=== PATIENT | male | born 1940 | race Hispanic/Latino ===

== ENCOUNTER 2017-08-28 21:08 | Inpatient (IN) | payer MEDICARE ==
[~2017-08-28] VITALS: Ht 167.6 cm; Wt 91.2 kg
[~2017-08-28 21:08] MED LIST: ALLO100T PO; CETI10TA57 PO; FURO40TA5 PO; ISOS30TA6 PO; LEVO50TA11 PO; LOSA100T29 PO; MELA1TAB28 PO; NIAC-8 PO; NOVOLOG 75/25 SQ; SIMV80TA5 PO
[2017-08-28] MEDS ORDERED: ACETAMINOPHEN-CODEINE ELIXIR 5 ML UDCUP ONE (21:34)
[2017-08-28] MEDS ORDERED: SODIUM CHLORIDE 0.9% 1000ML 1,000 ML IV ONE (21:34)
[2017-08-28 21:38] LABS: BASOPHILS % (AUTO) 0.7 % (0.0-5.0); EOSINOPHILS % (AUTO) 0.1 % (0.0-8.0); HEMATOCRIT 32.9 % (42-54); LYMPHOCYTES % (AUTO) 4.7 % (21.0-51.0); MEAN CORPUSCULAR HEMOGLOBIN 29.3 pg (27.0-33.0); MEAN CORPUSCULAR HGB CONC 32.8 g/dL (32.0-36.0); MEAN CORPUSCULAR VOLUME 89.2 fL (79-99); MONOCYTES % (AUTO) 7.2 % (3.0-13.0); NEUTROPHILS % (AUTO) 87.3 % (40.0-77.0); PLATELET COUNT (AUTO) 220 K/uL (130-400); RED BLOOD CELL COUNT(AUTO) 3.69 MIL/uL (4.50-6.20); RED CELL DISTRIBUTION WIDTH 18.7 % (11.0-15.5); WHITE BLOOD COUNT (AUTO) 9.9 K/uL (4.8-10.8)
[2017-08-28] MEDS ORDERED: OSELTAMIVIR PHOSPHATE 75 MG CAP ONE (22:16)
[2017-08-28 22:17] LABS: CREATININE 2.9 mg/dL (0.5-1.5); POTASSIUM 4.9 mmol/L (3.5-5.1)
[2017-08-28] MEDS ORDERED: IPRATROPIUM/ALBUTEROL SULFATE 3 ML SOLUTION IH ONE (22:22)
[2017-08-28] MEDS ORDERED: LEVOFLOXACIN 500 MG/D5W 100 ML 100 ML ONE (23:19)
[2017-08-28] MEDS ORDERED: DEXTROSE 50%-WATER 50 ML DISP.SYRIN IV PRN (23:30)
[2017-08-28] MEDS ORDERED: NITROGLYCERIN 0.4 MG SL TAB SL PRN (23:30)
[2017-08-28] MEDS ORDERED: DiphenhydrAMINE HCL 50 MG/ML VIAL IV PRN (23:30)
[2017-08-28] MEDS ORDERED: GLUCAGON 1MG KIT 1 MG ML IM PRN (23:30)
[2017-08-28] MEDS ORDERED: HYDRALAZINE HCL 20 MG/ML VIAL IV PRN (23:30)
[2017-08-28] MEDS ORDERED: LEVOFLOXACIN 500 MG/D5W 100 ML 100 ML IV SCH (23:30)
[2017-08-29] VITALS (7 sets, daily range): BP systolic 120–140; BP diastolic 59–76
[2017-08-29] MEDS: IPRATROPIUM/ALBUTEROL SULFATE 3 ML SOLUTION IH SCH ×4 (01:32→19:07)
[2017-08-29] MEDS: SODIUM CHLORIDE 0.9% 1000ML 1,000 ML IV SCH ×2 (02:15→07:40)
[2017-08-29] MEDS: GUAIFENESIN-DM 200/20 MG 10 ML PO PRN ×2 (02:52→21:23)
[2017-08-29] MEDS: LEVOFLOXACIN 500 MG/D5W 100 ML 100 ML IV SCH (03:09)
[2017-08-29] MEDS ORDERED: CLONIDINE HCL 0.1 MG TABLET PO PRN (03:15)
[2017-08-29] MEDS ORDERED: POTASSIUM CHLORIDE 10% ELIXIR 20 MEQ/15 ML UDCUP PO PRN (03:15)
[2017-08-29] MEDS ORDERED: LIDOCAINE HCL-MPF 1% 2ML VIAL IJ PRN (03:15)
[2017-08-29] MEDS ORDERED: ACETAMINOPHEN 325 MG TAB PO PRN ×2 (03:15)
[2017-08-29] MEDS ORDERED: POTASSIUM CHLORIDE 20 MEQ ERTAB PO PRN (03:15)
[2017-08-29] MEDS ORDERED: POTASSIUM CHLORIDE 20MEQ/100ML 100 ML IV PRN (03:15)
[2017-08-29 05:35] LABS: HEMATOCRIT 28.2 % (42-54); MEAN CORPUSCULAR HEMOGLOBIN 28.9 pg (27.0-33.0); MEAN CORPUSCULAR HGB CONC 33.4 g/dL (32.0-36.0); MEAN CORPUSCULAR VOLUME 86.6 fL (79-99); PLATELET COUNT (AUTO) 166 K/uL (130-400); RED BLOOD CELL COUNT(AUTO) 3.26 MIL/uL (4.50-6.20); RED CELL DISTRIBUTION WIDTH 18.3 % (11.0-15.5); WHITE BLOOD COUNT (AUTO) 8.1 K/uL (4.8-10.8)
[2017-08-29 05:50] LABS: B-TYPE NATRIURETIC PEPTIDE 2040 pg/mL (0-100)
[2017-08-29 06:09] LABS: HEMOGLOBIN A1C 10.6 % (4.0-6.0)
[2017-08-29 06:11] LABS: CREATINE KINASE MB 1.1 ng/mL (0.5-3.6); TROPONIN I 0.07 ng/mL (0.00-0.06)
[2017-08-29] MEDS: FAMOTIDINE 20MG TAB 20 MG TAB PO SCH (07:40)
[2017-08-29] MEDS: COMPOUNDING VEHICLE NO 8 PO SCH ×3 (07:40)
[2017-08-29] MEDS: [UNRECOGNIZED DRUG - OTHER] PO SCH ×3 (07:40)
[2017-08-29] MEDS: OSELTAMIVIR PHOSPHATE PO SCH ×3 (07:40)
[2017-08-29] MEDS: INSULIN HUMULIN R 100 UNIT/ML 3ML SQ SCH ×4 (08:09→21:00)
[2017-08-29] MEDS ORDERED: COMPOUND IV MISC 1 EACH IVSOLN MISC PRN (08:15)
[2017-08-29] MEDS ORDERED: OSELTAMIVIR PHOSPHATE 75 MG CAP PO SCH ×3 (09:00)
[2017-08-29] MEDS ORDERED: SPIR25TA4 PO (09:36)
[2017-08-29] MEDS ORDERED: GLIP5TAB11 PO (09:36)
[2017-08-29] MEDS ORDERED: SIMV80TA5 PO (09:36)
[2017-08-29] MEDS ORDERED: LEVO50 PO (09:36)
[2017-08-29] MEDS ORDERED: LOSA100T29 PO (09:36)
[2017-08-29] MEDS ORDERED: METO-408 PO (09:36)
[2017-08-29] MEDS ORDERED: ALLO100T PO (09:36)
[2017-08-29] MEDS ORDERED: ISOS30TA11 PO (09:36)
[2017-08-29] MEDS ORDERED: FURO40TA5 PO (09:36)
[2017-08-29 09:57] LABS: APPEARANCE,URINE Cloudy (CLEAR); BILIRUBIN,URINE Negative (NEGATIVE); COLOR,URINE Yellow (YELLOW); GLUCOSE, URINE (UA) TRACE mg/dL (NEGATIVE); KETONES,URINE Negative (NEGATIVE); LEUKOCYTE ESTERASE ,URINE Large (NEGATIVE); NITRATE,URINE Negative (NEGATIVE); OCCULT BLOOD,URINE Moderate (NEGATIVE); PH,URINE 6.5 (5.0-8.0); PROTEIN,URINE POS 2+ (NEGATIVE)
[2017-08-29] MEDS ORDERED: COMPOUND PO MISCELLANEOUS 1 EACH MISC MISC PRN (10:00)
[2017-08-29 10:31] LABS: RBC,URINE 0-1 /HPF (0-1); WBC,URINE 51-100 /HPF (0-1)
[2017-08-29 10:32] LABS: BACTERIA,URINE Rare /HPF (None Seen); SQUAMOUS EPITHELIAL CELL,UR Rare /LPF (0-2)
[2017-08-29] MEDS: FUROSEMIDE 40 MG TABLET PO SCH (17:11)
[2017-08-29] MEDS: GLIPIZIDE 5 MG TABLET PO SCH (17:11)
[2017-08-29] MEDS: LACTULOSE 20 GM/30 ML UDCUP PO PRN (21:23)
[2017-08-29] MEDS: ISOSORBIDE DINITRATE 20 MG TABLET PO SCH (21:23)
[2017-08-29] MEDS: ATORVASTATIN CALCIUM 40 MG TABLET PO SCH (21:23)
[2017-08-30] MEDS: IPRATROPIUM/ALBUTEROL SULFATE 3 ML SOLUTION IH SCH ×4 (00:14→18:30)
[2017-08-30] MEDS: METHYLPREDNISOLONE SOD SUCC 125MG/2ML VIAL IVP SCH ×3 (01:12→17:01)
[2017-08-30 04:00] VITALS: BP 124/65
[2017-08-30] MEDS: INSULIN HUMULIN R 100 UNIT/ML 3ML SQ SCH ×4 (06:09→21:33)
[2017-08-30 08:00] VITALS: BP 128/73
[2017-08-30] MEDS: FUROSEMIDE 40 MG TABLET PO SCH ×2 (08:45→17:01)
[2017-08-30] MEDS: SPIRONOLACTONE 25 MG TAB PO SCH (08:45)
[2017-08-30] MEDS: FAMOTIDINE 20MG TAB 20 MG TAB PO SCH (08:46)
[2017-08-30] MEDS: LEVOTHYROXINE 50 MCG TABLET PO SCH (08:46)
[2017-08-30] MEDS: ALLOPURINOL 100 MG TABLET PO SCH (08:46)
[2017-08-30] MEDS: LOSARTAN 100 MG TABLET PO SCH (08:47)
[2017-08-30] MEDS: METOPROLOL TARTRATE 25 MG TAB PO SCH ×2 (08:47→21:39)
[2017-08-30] MEDS: GLIPIZIDE 5 MG TABLET PO SCH ×2 (08:47→17:01)
[2017-08-30] MEDS: OSELTAMIVIR PHOSPHATE PO SCH ×3 (09:00)
[2017-08-30] MEDS: COMPOUNDING VEHICLE NO 8 PO SCH ×3 (09:00)
[2017-08-30] MEDS: ISOSORBIDE DINITRATE 20 MG TABLET PO SCH (09:00)
[2017-08-30] MEDS: [UNRECOGNIZED DRUG - OTHER] PO SCH ×3 (09:00)
[2017-08-30] MEDS: ISOSORBIDE DINITRATE 10 MG TABLET PO SCH ×2 (10:19→21:39)
[2017-08-30 12:00] VITALS: BP 121/79
[2017-08-30 16:00] VITALS: BP 123/63
[2017-08-30 19:00] VITALS: BP 122/66
[2017-08-30] MEDS: LACTULOSE 20 GM/30 ML UDCUP PO PRN (19:10)
[2017-08-30] MEDS: ATORVASTATIN CALCIUM 40 MG TABLET PO SCH (21:39)
[2017-08-30 23:00] VITALS: BP 131/69
[2017-08-31] MEDS: METHYLPREDNISOLONE SOD SUCC 125MG/2ML VIAL IVP SCH ×5 (00:18→23:38)
[2017-08-31] MEDS: IPRATROPIUM/ALBUTEROL SULFATE 3 ML SOLUTION IH SCH ×4 (00:18→18:17)
[2017-08-31 03:00] VITALS: BP 113/54
[2017-08-31] MEDS: LEVOFLOXACIN 500 MG/D5W 100 ML 100 ML IV SCH (03:27)
[2017-08-31 04:41] LABS: HEMATOCRIT 26.7 % (42-54); MEAN CORPUSCULAR HEMOGLOBIN 28.7 pg (27.0-33.0); MEAN CORPUSCULAR HGB CONC 33.1 g/dL (32.0-36.0); MEAN CORPUSCULAR VOLUME 86.7 fL (79-99); NUCLEATED RED BLOOD CELLS 0.1 % (0.0-0.19); PLATELET COUNT (AUTO) 180 K/uL (130-400); RED BLOOD CELL COUNT(AUTO) 3.07 MIL/uL (4.50-6.20); RED CELL DISTRIBUTION WIDTH 18.6 % (11.0-15.5); WHITE BLOOD COUNT (AUTO) 9.9 K/uL (4.8-10.8)
[2017-08-31 05:04] LABS: CREATININE 3.2 mg/dL (0.5-1.5); POTASSIUM 3.5 mmol/L (3.5-5.1)
[2017-08-31] MEDS: INSULIN HUMULIN R 100 UNIT/ML 3ML SQ SCH ×4 (06:25→21:44)
[2017-08-31] MEDS: LEVOTHYROXINE 50 MCG TABLET PO SCH (06:25)
[2017-08-31 07:00] VITALS: BP 133/72
[2017-08-31] MEDS: ALLOPURINOL 100 MG TABLET PO SCH (08:06)
[2017-08-31] MEDS: ISOSORBIDE DINITRATE 10 MG TABLET PO SCH ×2 (08:07→21:49)
[2017-08-31] MEDS: LOSARTAN 100 MG TABLET PO SCH (08:07)
[2017-08-31] MEDS: FUROSEMIDE 40 MG TABLET PO SCH ×2 (08:08→15:45)
[2017-08-31] MEDS: FAMOTIDINE 20MG TAB 20 MG TAB PO SCH (08:08)
[2017-08-31] MEDS: SPIRONOLACTONE 25 MG TAB PO SCH (08:09)
[2017-08-31] MEDS: GLIPIZIDE 5 MG TABLET PO SCH ×2 (08:09→15:45)
[2017-08-31] MEDS: METOPROLOL TARTRATE 25 MG TAB PO SCH ×2 (08:10→21:50)
[2017-08-31] MEDS: CADEXOMER IODINE 40 GM GEL TP SCH (08:10)
[2017-08-31] MEDS ORDERED: ENOXAPARIN SODIUM 30 MG/0.3 ML SQ SCH (09:00)
[2017-08-31 11:00] VITALS: BP 129/65
[2017-08-31 15:10] VITALS: BP 128/70
[2017-08-31 19:57] VITALS: BP 118/65
[2017-08-31] MEDS: ATORVASTATIN CALCIUM 40 MG TABLET PO SCH (21:49)
[2017-08-31] MEDS: [UNRECOGNIZED DRUG - OTHER] PO SCH ×3 (21:50)
[2017-08-31] MEDS: OSELTAMIVIR PHOSPHATE PO SCH ×3 (21:50)
[2017-08-31] MEDS: COMPOUNDING VEHICLE NO 8 PO SCH ×3 (21:50)
[2017-08-31] MEDS: GUAIFENESIN-DM 200/20 MG 10 ML PO PRN (21:50)
[2017-08-31 23:53] VITALS: BP 126/70
[2017-09-01] MEDS: IPRATROPIUM/ALBUTEROL SULFATE 3 ML SOLUTION IH SCH ×5 (00:03→23:52)
[2017-09-01 03:43] VITALS: BP 128/77
[2017-09-01 05:01] LABS: HEMATOCRIT 27.2 % (42-54); MEAN CORPUSCULAR HEMOGLOBIN 30.1 pg (27.0-33.0); MEAN CORPUSCULAR HGB CONC 34.6 g/dL (32.0-36.0); MEAN CORPUSCULAR VOLUME 86.8 fL (79-99); PLATELET COUNT (AUTO) 186 K/uL (130-400); RED BLOOD CELL COUNT(AUTO) 3.13 MIL/uL (4.50-6.20); RED CELL DISTRIBUTION WIDTH 18.2 % (11.0-15.5); WHITE BLOOD COUNT (AUTO) 13.6 K/uL (4.8-10.8)
[2017-09-01 05:08] LABS: CREATININE 3.3 mg/dL (0.5-1.5); POTASSIUM 3.7 mmol/L (3.5-5.1)
[2017-09-01 05:14] LABS: B-TYPE NATRIURETIC PEPTIDE 1040 pg/mL (0-100)
[2017-09-01] MEDS: LEVOTHYROXINE 50 MCG TABLET PO SCH (07:18)
[2017-09-01 07:20] VITALS: BP 122/64
[2017-09-01] MEDS: INSULIN HUMULIN R 100 UNIT/ML 3ML SQ SCH ×4 (07:20→21:25)
[2017-09-01] MEDS: GLIPIZIDE 5 MG TABLET PO SCH ×2 (10:34→16:32)
[2017-09-01] MEDS: METHYLPREDNISOLONE SOD SUCC 125MG/2ML VIAL IVP SCH ×2 (10:34→16:32)
[2017-09-01] MEDS: FUROSEMIDE 40 MG TABLET PO SCH ×2 (10:34→16:32)
[2017-09-01] MEDS: SPIRONOLACTONE 25 MG TAB PO SCH (10:35)
[2017-09-01] MEDS: METOPROLOL TARTRATE 25 MG TAB PO SCH ×2 (10:35→21:28)
[2017-09-01] MEDS: LOSARTAN 100 MG TABLET PO SCH (10:35)
[2017-09-01] MEDS: ALLOPURINOL 100 MG TABLET PO SCH (10:35)
[2017-09-01] MEDS: ISOSORBIDE DINITRATE 10 MG TABLET PO SCH ×2 (10:35→21:28)
[2017-09-01] MEDS: FAMOTIDINE 20MG TAB 20 MG TAB PO SCH (10:35)
[2017-09-01] MEDS: CADEXOMER IODINE 40 GM GEL TP SCH (10:36)
[2017-09-01] MEDS: OSELTAMIVIR PHOSPHATE PO SCH ×3 (10:37)
[2017-09-01] MEDS: [UNRECOGNIZED DRUG - OTHER] PO SCH ×3 (10:37)
[2017-09-01] MEDS: COMPOUNDING VEHICLE NO 8 PO SCH ×3 (10:37)
[2017-09-01 11:02] VITALS: BP 132/78
[2017-09-01 15:00] VITALS: BP 120/64
[2017-09-01 20:20] VITALS: BP 124/74
[2017-09-01] MEDS: ATORVASTATIN CALCIUM 40 MG TABLET PO SCH (21:28)
[2017-09-01 23:42] VITALS: BP 127/73
[2017-09-02] MEDS: METHYLPREDNISOLONE SOD SUCC 125MG/2ML VIAL IVP SCH ×2 (00:34→07:40)
[2017-09-02] MEDS: LEVOFLOXACIN 500 MG/D5W 100 ML 100 ML IV SCH (02:24)
[2017-09-02 03:18] VITALS: BP 127/75
[2017-09-02 03:42] LABS: HEMATOCRIT 28.1 % (42-54); MEAN CORPUSCULAR HEMOGLOBIN 29.1 pg (27.0-33.0); MEAN CORPUSCULAR HGB CONC 33.5 g/dL (32.0-36.0); NUCLEATED RED BLOOD CELLS 0.2 % (0.0-0.19); PLATELET COUNT (AUTO) 159 K/uL (130-400); RED BLOOD CELL COUNT(AUTO) 3.23 MIL/uL (4.50-6.20); RED CELL DISTRIBUTION WIDTH 18.7 % (11.0-15.5); WHITE BLOOD COUNT (AUTO) 10.8 K/uL (4.8-10.8)
[2017-09-02 03:59] LABS: CREATININE 3.2 mg/dL (0.5-1.5); POTASSIUM 3.9 mmol/L (3.5-5.1)
[2017-09-02 04:09] LABS: B-TYPE NATRIURETIC PEPTIDE 1170 pg/mL (0-100)
[2017-09-02] MEDS: IPRATROPIUM/ALBUTEROL SULFATE 3 ML SOLUTION IH SCH ×4 (06:40→23:24)
[2017-09-02] MEDS: INSULIN HUMULIN R 100 UNIT/ML 3ML SQ SCH ×4 (07:01→20:26)
[2017-09-02] MEDS: LEVOTHYROXINE 50 MCG TABLET PO SCH (07:01)
[2017-09-02] MEDS: FUROSEMIDE 40 MG TABLET PO SCH (07:41)
[2017-09-02] MEDS: GLIPIZIDE 5 MG TABLET PO SCH ×2 (07:41→16:54)
[2017-09-02 08:21] VITALS: BP 146/86
[2017-09-02] MEDS: OSELTAMIVIR PHOSPHATE PO SCH ×3 (09:00)
[2017-09-02] MEDS: [UNRECOGNIZED DRUG - OTHER] PO SCH ×3 (09:00)
[2017-09-02] MEDS: COMPOUNDING VEHICLE NO 8 PO SCH ×3 (09:00)
[2017-09-02] MEDS: FAMOTIDINE 20MG TAB 20 MG TAB PO SCH (09:20)
[2017-09-02] MEDS: ISOSORBIDE DINITRATE 10 MG TABLET PO SCH ×2 (09:20→20:23)
[2017-09-02] MEDS: ALLOPURINOL 100 MG TABLET PO SCH (09:21)
[2017-09-02] MEDS: SPIRONOLACTONE 25 MG TAB PO SCH (09:21)
[2017-09-02] MEDS: LOSARTAN 100 MG TABLET PO SCH (09:22)
[2017-09-02] MEDS: METOPROLOL TARTRATE 25 MG TAB PO SCH ×2 (09:22→20:23)
[2017-09-02] MEDS: CADEXOMER IODINE 40 GM GEL TP SCH (09:25)
[2017-09-02 11:25] VITALS: BP 135/75
[2017-09-02 17:00] VITALS: BP 130/78
[2017-09-02 20:00] VITALS: BP 133/92
[2017-09-02] MEDS: METHYLPREDNISOLONE SOD SUCC 40MG/ML 1ML IVP SCH (20:22)
[2017-09-02] MEDS: ATORVASTATIN CALCIUM 40 MG TABLET PO SCH (20:23)
[2017-09-02 23:30] VITALS: BP 142/83
[2017-09-03 03:30] VITALS: BP 132/77
[2017-09-03 04:26] LABS: CREATININE 3.2 mg/dL (0.5-1.5); POTASSIUM 3.6 mmol/L (3.5-5.1)
[2017-09-03] MEDS: LEVOTHYROXINE 50 MCG TABLET PO SCH (06:01)
[2017-09-03] MEDS: IPRATROPIUM/ALBUTEROL SULFATE 3 ML SOLUTION IH SCH ×4 (06:06→23:59)
[2017-09-03] MEDS: INSULIN HUMULIN R 100 UNIT/ML 3ML SQ SCH ×4 (06:40→22:22)
[2017-09-03 07:54] VITALS: BP 139/81
[2017-09-03] MEDS: SPIRONOLACTONE 25 MG TAB PO SCH (08:16)
[2017-09-03] MEDS: GLIPIZIDE 5 MG TABLET PO SCH ×2 (08:16→17:48)
[2017-09-03] MEDS: METHYLPREDNISOLONE SOD SUCC 40MG/ML 1ML IVP SCH ×2 (08:16→22:12)
[2017-09-03] MEDS: ISOSORBIDE DINITRATE 10 MG TABLET PO SCH ×2 (08:17→22:14)
[2017-09-03] MEDS: METOPROLOL TARTRATE 25 MG TAB PO SCH ×2 (08:18→22:13)
[2017-09-03] MEDS: ALLOPURINOL 100 MG TABLET PO SCH (08:18)
[2017-09-03] MEDS: FAMOTIDINE 20MG TAB 20 MG TAB PO SCH (08:19)
[2017-09-03] MEDS: CADEXOMER IODINE 40 GM GEL TP SCH (08:20)
[2017-09-03 11:22] VITALS: BP 138/77
[2017-09-03 16:00] VITALS: BP 123/76
[2017-09-03 19:20] VITALS: BP 140/80
[2017-09-03] MEDS ORDERED: FUROSEMIDE 40 MG TABLET ONE (22:08)
[2017-09-03] MEDS: ATORVASTATIN CALCIUM 40 MG TABLET PO SCH (22:13)
[2017-09-03] MEDS: FUROSEMIDE 40 MG TABLET PO SCH (22:13)
[2017-09-03 23:15] VITALS: BP 131/70
[2017-09-04] MEDS: LEVOFLOXACIN 500 MG/D5W 100 ML 100 ML IV SCH (02:48)
[2017-09-04 03:15] VITALS: BP 140/74
[2017-09-04 06:06] LABS: HEMATOCRIT 30.6 % (42-54); MEAN CORPUSCULAR HEMOGLOBIN 28.1 pg (27.0-33.0); MEAN CORPUSCULAR HGB CONC 32.3 g/dL (32.0-36.0); MEAN CORPUSCULAR VOLUME 86.8 fL (79-99); NUCLEATED RED BLOOD CELLS 0.2 % (0.0-0.19); PLATELET COUNT (AUTO) 169 K/uL (130-400); RED BLOOD CELL COUNT(AUTO) 3.52 MIL/uL (4.50-6.20); RED CELL DISTRIBUTION WIDTH 18.4 % (11.0-15.5); WHITE BLOOD COUNT (AUTO) 13.8 K/uL (4.8-10.8)
[2017-09-04] MEDS: LEVOTHYROXINE 50 MCG TABLET PO SCH (06:11)
[2017-09-04 06:14] LABS: CREATININE 2.9 mg/dL (0.5-1.5); POTASSIUM 3.9 mmol/L (3.5-5.1)
[2017-09-04] MEDS: INSULIN HUMULIN R 100 UNIT/ML 3ML SQ SCH ×4 (06:18→21:42)
[2017-09-04] MEDS: IPRATROPIUM/ALBUTEROL SULFATE 3 ML SOLUTION IH SCH ×3 (06:37→18:35)
[2017-09-04] MEDS: GLIPIZIDE 5 MG TABLET PO SCH ×2 (08:10→16:34)
[2017-09-04] MEDS: FAMOTIDINE 20MG TAB 20 MG TAB PO SCH (08:10)
[2017-09-04] MEDS: METHYLPREDNISOLONE SOD SUCC 40MG/ML 1ML IVP SCH ×2 (08:11→21:29)
[2017-09-04] MEDS: SPIRONOLACTONE 25 MG TAB PO SCH (08:11)
[2017-09-04] MEDS: ISOSORBIDE DINITRATE 10 MG TABLET PO SCH ×2 (08:11→21:29)
[2017-09-04] MEDS: ALLOPURINOL 100 MG TABLET PO SCH (08:11)
[2017-09-04] MEDS: METOPROLOL TARTRATE 25 MG TAB PO SCH ×2 (08:11→21:29)
[2017-09-04] MEDS: ENOXAPARIN SODIUM 30 MG/0.3 ML SQ SCH (08:12)
[2017-09-04 08:19] LABS: LYMPHOCYTES % (MANUAL) 3 % (22-44); MONOCYTES % (MANUAL) 7 % (2-9); SEGMENTED NEUTROPHILS % 90 % (40-70)
[2017-09-04 08:33] LABS: MAN.DIFF COMMENT-IMPRESSION MANUAL DIFFERENTIAL; PLATELET MORPHOLOGY COMMENT ADEQUATE
[2017-09-04 09:13] VITALS: BP 126/67
[2017-09-04] MEDS: FUROSEMIDE 40 MG TABLET PO SCH ×2 (10:29→16:29)
[2017-09-04] MEDS: CADEXOMER IODINE 40 GM GEL TP SCH ×2 (10:29→10:30)
[2017-09-04 11:41] VITALS: BP 132/71
[2017-09-04 16:12] VITALS: BP 136/74
[2017-09-04 19:00] VITALS: BP 129/74
[2017-09-04] MEDS: ATORVASTATIN CALCIUM 40 MG TABLET PO SCH (21:29)
[2017-09-04 23:00] VITALS: BP 121/69
[2017-09-05] MEDS: IPRATROPIUM/ALBUTEROL SULFATE 3 ML SOLUTION IH SCH ×3 (00:14→11:33)
[2017-09-05 03:00] VITALS: BP 133/68
[2017-09-05] MEDS ORDERED: INSULIN HUMULIN R 100 UNIT/ML 3ML SQ ONE (06:05)
[2017-09-05] MEDS: LEVOTHYROXINE 50 MCG TABLET PO SCH (06:22)
[2017-09-05] MEDS: INSULIN HUMULIN R 100 UNIT/ML 3ML SQ SCH ×3 (06:25→16:59)
[2017-09-05 06:33] LABS: HEMATOCRIT 29.4 % (42-54); MEAN CORPUSCULAR HEMOGLOBIN 29.2 pg (27.0-33.0); MEAN CORPUSCULAR HGB CONC 33.5 g/dL (32.0-36.0); MEAN CORPUSCULAR VOLUME 87.1 fL (79-99); PLATELET COUNT (AUTO) 153 K/uL (130-400); RED BLOOD CELL COUNT(AUTO) 3.38 MIL/uL (4.50-6.20); RED CELL DISTRIBUTION WIDTH 18.7 % (11.0-15.5); WHITE BLOOD COUNT (AUTO) 11.5 K/uL (4.8-10.8)
[2017-09-05 06:53] LABS: CREATININE 2.7 mg/dL (0.5-1.5); POTASSIUM 4.1 mmol/L (3.5-5.1)
[2017-09-05 07:00] VITALS: BP 141/68
[2017-09-05 07:21] LABS: BAND NEUTROPHILS % (MANUAL) 1 % (0-2); LYMPHOCYTES % (MANUAL) 3 % (22-44); MAN.DIFF COMMENT-IMPRESSION MANUAL DIFFERENTIAL; MONOCYTES % (MANUAL) 2 % (2-9); SEGMENTED NEUTROPHILS % 94 % (40-70)
[2017-09-05 07:22] LABS: PLATELET MORPHOLOGY COMMENT ADEQUATE
[2017-09-05] MEDS: FAMOTIDINE 20MG TAB 20 MG TAB PO SCH (09:42)
[2017-09-05] MEDS: ALLOPURINOL 100 MG TABLET PO SCH (09:42)
[2017-09-05] MEDS: METOPROLOL TARTRATE 25 MG TAB PO SCH (09:42)
[2017-09-05] MEDS: METHYLPREDNISOLONE SOD SUCC 40MG/ML 1ML IVP SCH (09:42)
[2017-09-05] MEDS: SPIRONOLACTONE 25 MG TAB PO SCH (09:42)
[2017-09-05] MEDS: ISOSORBIDE DINITRATE 10 MG TABLET PO SCH (09:42)
[2017-09-05] MEDS: ENOXAPARIN SODIUM 30 MG/0.3 ML SQ SCH (09:43)
[2017-09-05] MEDS: CADEXOMER IODINE 40 GM GEL TP SCH (09:46)
[2017-09-05] MEDS: FUROSEMIDE 40 MG TABLET PO SCH ×2 (09:46→16:58)
[2017-09-05] MEDS: GLIPIZIDE 5 MG TABLET PO SCH ×2 (09:46→16:58)
[2017-09-05 11:00] VITALS: BP 131/65
[2017-09-05] MEDS ORDERED: LEVO500T2 PO (11:44)
[2017-09-05] MEDS ORDERED: NYSTATIN 30 GM CREAM.GM. TP SCH (14:00)
[2017-09-05 15:43] VITALS: BP 124/67
== END 2017-09-05 18:35 | disposition home or self-care (01) | DRG 291 ==
LOC: EDH 21:08 → OBSVTOIN 22:50 → EDHIP 22:50 → 3CH 23:18
PROVIDERS: ADMIT Family Medicine; ATTEND Family Medicine
DX: I13.0 Hypertensive heart and chronic kidney disease with heart failure and stage 1 through stage 4 chronic kidney disease, or unspecified chronic kidney disease (principal); J18.9 Pneumonia, unspecified organism; N17.9 Acute kidney failure, unspecified; N18.4 Chronic kidney disease, stage 4 (severe); E11.22 Type 2 diabetes mellitus with diabetic chronic kidney disease; E11.51 Type 2 diabetes mellitus with diabetic peripheral angiopathy without gangrene; D64.9 Anemia, unspecified; I42.9 Cardiomyopathy, unspecified; I50.43 Acute on chronic combined systolic (congestive) and diastolic (congestive) heart failure; J10.1 Influenza due to other identified influenza virus with other respiratory manifestations; E86.0 Dehydration; M10.9 Gout, unspecified; E03.9 Hypothyroidism, unspecified; E78.5 Hyperlipidemia, unspecified; I25.10 Atherosclerotic heart disease of native coronary artery without angina pectoris; N40.0 Benign prostatic hyperplasia without lower urinary tract symptoms; Z87.891 Personal history of nicotine dependence; Z89.419 Acquired absence of unspecified great toe; Z95.0 Presence of cardiac pacemaker; Z95.1 Presence of aortocoronary bypass graft; Z95.5 Presence of coronary angioplasty implant and graft
CPT/HCPCS: 36415; 71010; 71020; 71250; 76770; 80048; 80061; 81001; 82550; 82553; 82948; 83036; 83874; 83880; 84484; 85025; 85027; 87070; 87076; 87804; 93005; 93306; 94640; 94664; 97039; J1650; J1815; J1956; J2920; J2930; J7030